=== PATIENT | male | born 1950 | race Caucasian/White ===

== ENCOUNTER 2017-07-26 08:30 | Emergency (ER) | payer MEDICARE ==
[2017-07-26 09:41] LABS: Bilirubin Negative (Negative); Blood, Urine Small (Negative); Clarity Clear (Clear); Glucose, Urine (Dipstick) Negative (Negative); Leukocyte Negative (Negative); Nitrite Negative (Negative); Protein, Urine (Dipstick) Negative (Neg-Trace); Specific Gravity, Urine 1.015 (1.005-1.030); Urobilinogen 0.2 mg/dL (0.2-1.0)
[2017-07-26 09:42] LABS: Bacteria/HPF Rare-Few HPF (None Seen); Squamous Epithelial 0-3 HPF (0-3); WBC/HPF None Seen HPF (0-3)
== END 2017-07-26 09:55 | disposition home or self-care (01) ==
LOC: MADERS 08:30
DX: N40.1 Benign prostatic hyperplasia with lower urinary tract symptoms (principal); R33.8 Other retention of urine; Z79.899 Other long term (current) drug therapy
CPT/HCPCS: 51702; 81001; 87086

== ENCOUNTER 2017-07-27 09:08 | Emergency (ER) | payer MEDICARE ==
[~2017-07-27 09:08] MED LIST: Sterile Water Irrigation 250 ML BOT ONE
== END 2017-07-27 10:10 | disposition home or self-care (01) ==
LOC: MADERS 09:08
DX: T83.038A Leakage of other urinary catheter, initial encounter (principal)
CPT/HCPCS: 99283